=== PATIENT | female | born 1950 | race Caucasian/White ===

== ENCOUNTER 2016-08-09 09:08 | Emergency (ER) | payer OTHER ==
[2016-08-09 09:15] VITALS: BP 101/49; PULSE 99; TEMP 97.9; BMI 38.8
[2016-08-09] MEDS ORDERED: KETOROLAC TROMETHAMINE 60 MG/2 ML VIAL ONE (10:05)
--- NOTE | 2016-08-09 10:05 | PDOC ---
History of Present Illness - General Chief Complaint: Injury Stated Complaint: FALL/ BACK PAIN Time Seen by Provider: 08/09/16 09:28 History Source: Patient Exam Limitations: No Limitations - History of Present Illness Initial Comments: 08/09/16 9:04 States slipped and fell landing on her bottom 4 days ago, and has had exquisite coccyx pain since that time. States was black and blue, used ice packs but has significant continued tenderness. no tingling to legs, no other injury. Has used ibuprofen with minimal resolved. 08/09/16 16:05 08/09/16 16:08 Severity: reports: moderate Pain Location: reports: pelvis Method of Injury: Yes: fall Modifying Factors: improves with: cold therapy, pain medication Loss of Consciousness: no loss of consciousness Associated Symptoms (Fall): denies symptoms Past History - Travel Traveled outside of the country in the last 30 days: No Close contact w/someone who was outside of country & ill: No - Past Medical History Allergies/Adverse Reactions: Allergies Allergy/AdvReac Type Severity Reaction Status Date / Time acetaminophen [From Tylenol] AdvReac Nausea Verified 08/09/16 09:11 Home Medications: Ambulatory Orders Tramadol HCl 50 mg PO Q8H PRN #14 tablet MDD pain 08/09/16 Diabetes: Yes HTN: Yes Hypercholesterolemia: Yes - Surgical History Cholecystectomy: Yes - Psycho/Social/Smoking Cessation Hx Anxiety: No Suicidal Ideation: No Smoking Status: No Smoking History: Never smoked Number of Cigarettes Smoked Daily: 0 Hx Alcohol Use: Yes (SOCIAL) Substance Use Type: None Review of Systems - Review of Systems Able to Perform ROS?: Yes Is the patient limited Turkish proficient: Yes Constitutional: Yes: Symptoms Reported, See HPI, Malaise. No: Fever HEENTM: No: Symptoms Reported Respiratory: No: Symptoms reported Musculoskeletal: Yes: Symptoms Reported, See HPI, Joint Pain Integumentary: Yes: Symptoms Reported, See HPI, Bruising Neurological: No: Symptoms reported All Other Systems: Reviewed and Negative *Physical Exam - Vital Signs Last Vital Signs Temp Pulse Resp BP Pulse Ox 97.9 F 99 H 19 101/49 99 08/09/16 09:11 08/09/16 09:11 08/09/16 09:11 08/09/16 09:11 08/09/16 09:11 - Physical Exam Comments: 08/09/16 08/09/16 16:07 General Appearance: Yes: Appropriately Dressed, Apparent Distress, Moderate Distress HEENT: positive: MITRA, Normal ENT Inspection, TMs Normal Neck: positive: Supple. negative: Tender Respiratory/Chest: positive: Lungs Clear, Normal Breath Sounds Gastrointestinal/Abdominal: positive: Normal Bowel Sounds, Soft. 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 We will hold x-rays and discussed all symptomatology and evidence with patient. Understands treatment is pain relief and rest until healing and pain resolves *DC/Admit/Observation/Transfer Diagnosis at time of Disposition: Fractured coccyx Qualifiers: Encounter type: initial encounter Fracture type: closed Qualified Code(s): S32.2XXA - Fracture of coccyx, initial encounter for closed fracture - Discharge Dispostion Disposition: HOME Condition at time of disposition: Stable Admit: No - Prescriptions Prescriptions: Tramadol HCl 50 mg PO Q8H PRN #14 tablet MDD pain PRN Reason: Pain - Referrals Referrals: Maria Antonia Burns MD [Primary Care Provider] - - Patient Instructions Printed Discharge Instructions: DI for Coccyx Fracture Additional Instructions: Rest, ice to area on and off for 15 minutes 4-6 times a day Avoid heavy lifting or exercise until pain and swelling is resolved or until further directed Keep area highly elevated to reduce swelling Followup with orthopedist in one to 2 days if not improving, if significantly improved may wait one week for followup with orthopedist May use ibuprofen 2-200 mg tablets every 6 hours as needed for pain May use tramadol for severe pain as directed - Post Discharge Activity Work/School Note: Back to Work
[2016-08-09] MEDS ORDERED: KETOROLAC TROMETHAMINE 60 MG/2 ML VIAL IM ONE (10:14)
== END 2016-08-09 10:15 | disposition home or self-care (01) ==
LOC: JERFT 09:08
DX: S32.2XXA Fracture of coccyx, initial encounter for closed fracture (principal); I10 Essential (primary) hypertension; E11.9 Type 2 diabetes mellitus without complications; E78.00 Pure hypercholesterolemia, unspecified; W01.0XXA Fall on same level from slipping, tripping and stumbling without subsequent striking against object, initial encounter; Y93.89 Activity, other specified; Y92.89 Other specified places as the place of occurrence of the external cause
CPT/HCPCS: 99281-25

== ENCOUNTER 2016-11-18 11:34 | Inpatient (IN) | payer OTHER ==
--- NOTE | 2016-11-18 11:46 | PDOC ---
History of Present Illness - General History Source: Patient Exam Limitations: No Limitations - History of Present Illness Initial Comments: 11/18/16 12:58 The patient is a 66 year old female, with a significant past medical history of hypercholesterolemia, HTN, and DM, who presents to the emergency department with witnessed syncopal episode, occurring today. The patient reports having a 2 -5 minute syncopal episode while sitting in the sun at a baseball game. Her son reports then bringing her body down to the shade, icing her head, and alerting EMS. No previous episodes of syncope. Denies palpitations, SOB, or CP prior to syncope. She denies any complaints upon ED arrival. She denies recent ECHO or stress test. 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 She reports feeling her normal baseline yesterday. She denies headache, focal weakness, tongue biting, incontinence. She denies recent fevers, chills, headache or dizziness. She denies recent nausea, vomit, diarrhea or constipation. She denies recent dysuria, frequency, urgency or hematuria. Allergies: NKA Past surgical history: None reported. Social history: Nonsmoker. Denies EtOH use and recreational drug use. <Arslan Jackson - Last Filed: 11/18/16 12:58> <Diana Malhotra - Last Filed: 11/18/16 13:57> <Viki Macdonald - Last Filed: 11/18/16 21:36> - General Chief Complaint: Syncope/Near Syncope Stated Complaint: Syncope/Near Syncope Past History <Arslan Jackson - Last Filed: 11/18/16 12:58> - Past Medical History Diabetes: Yes HTN: Yes Hypercholesterolemia: Yes - Surgical History Cholecystectomy: Yes - Psycho/Social/Smoking Cessation Hx Anxiety: No Suicidal Ideation: No Smoking Status: No Smoking History: Never smoked Number of Cigarettes Smoked Daily: 0 Hx Alcohol Use: Yes (SOCIAL) Substance Use Type: None <Diana Malhotra - Last Filed: 11/18/16 13:57> <Viki Macdonlad - Last Filed: 11/18/16 21:36> - Past Medical History Allergies/Adverse Reactions: Allergies Allergy/AdvReac Type Severity Reaction Status Date / Time acetaminophen [From Tylenol] AdvReac Nausea Verified 11/18/16 12:04 Home Medications: Ambulatory Orders Amlodipine Besylate 5 mg PO DAILY 11/18/16 Atorvastatin Ca [Lipitor] 10 mg PO HS 11/18/16 Losartan Potassium 100 mg PO DAILY 11/18/16 Metoprolol Tartrate 100 mg PO DAILY 11/18/16 Review of Systems - Review of Systems Able to Perform ROS?: Yes Comments:: 11/18/16 12:58 GENERAL/CONSTITUTIONAL: No fever or chills. No weakness. HEAD, EYES, EARS, NOSE AND THROAT: No change in vision. No ear pain or discharge. No sore throat. CARDIOVASCULAR: No chest pain or shortness of breath. RESPIRATORY: No cough, wheezing, or hemoptysis. GASTROINTESTINAL: +nausea No vomiting, diarrhea or constipation. GENITOURINARY: No dysuria, frequency, or change in urination. MUSCULOSKELETAL: No joint or muscle swelling or pain. No neck or back pain. SKIN: No rash NEUROLOGIC: +lightheadedness. No headache, vertigo, loss of consciousness, or change in strength/sensation. ENDOCRINE: No increased thirst. No abnormal weight change. HEMATOLOGIC/LYMPHATIC: No anemia, easy bleeding, or history of blood clots. ALLERGIC/IMMUNOLOGIC: No hives or skin allergy. <Arslan Jackson - Last Filed: 11/18/16 12:58> *Physical Exam - Vital Signs Last Vital Signs Temp Pulse Resp BP Pulse Ox 101.6 F H 106 H 20 155/86 99 11/18/16 11:45 11/18/16 11:45 11/18/16 11:45 11/18/16 11:45 11/18/16 11:45 - Physical Exam Comments: 11/18/16 12:58 GENERAL: Awake, alert, and fully oriented, in no acute distress HEAD: No signs of trauma EYES: PERRLA, EOMI, sclera anicteric, conjunctiva clear ENT: Auricles normal inspection, hearing grossly normal, nares patent, oropharynx clear without exudates. Moist mucosa NECK: Normal ROM, supple, no lymphadenopathy, JVD, or masses LUNGS: Breath sounds equal, clear to auscultation bilaterally. No wheezes, and no crackles HEART: Regular rate and rhythm, normal S1 and S2, no murmurs, rubs or gallops ABDOMEN: Not remarkable. Soft, nontender, normoactive bowel sounds. No guarding , no rebound. No masses EXTREMITIES: 1+ pitting edema to the knees that was symmetric. Normal range of motion. No clubbing or cyanosis. No cords, erythema, or tenderness NEUROLOGICAL: Normal speech, cranial nerves intact, negative pronator drift, 5/ 5 strength in all 4 extremities, normal sensation to light touch in all 4 extremities, normal cerebellar exam, normal gait, normal reflexes and tone SKIN: Warm, Dry, normal turgor, no rashes or lesions noted. <Arslan Jackson - Last Filed: 11/18/16 12:58> - Vital Signs Last Vital Signs Temp Pulse Resp BP Pulse Ox 98.9 F 92 H 18 127/76 98 11/18/16 19:00 11/18/16 19:00 11/18/16 19:00 11/18/16 19:00 11/18/16 19:00 <Viki Macdonald - Last Filed: 11/18/16 21:36> Heart Score/ECG Review - ECG Impressions Comment:: 11/18/16 12:23 Sinus tachycardia rate 104 Normal axis and intervals Has T wave inversion in V2 through V5 and has flattened in AVF and V6 When compared with previous EKG from October 06, 2011 the T wave inversion in V3- V6 are new. <Arslan Jackson - Last Filed: 11/18/16 12:58> ED Treatment Course - LABORATORY CBC & Chemistry Diagram: 11/18/16 12:13 11/18/16 12:13 <Diana Malhotra - Last Filed: 11/18/16 13:57> - LABORATORY CBC & Chemistry Diagram: 11/18/16 12:13 11/18/16 12:13 - ADDITIONAL ORDERS Additional order review: Laboratory Results 11/18/16 11/18/16 11/18/16 19:44 17:23 14:20 D-Dimer VBG pH POC VBG pCO2 POC VBG pO2 Mixed VBG HCO3 Sodium Potassium Chloride Carbon Dioxide Anion Gap BUN Creatinine Creat Clearance w eGFR Random Glucose Lactic Acid 2.1 H* 4.9 H* Calcium Magnesium Total Bilirubin AST ALT Alkaline Phosphatase Troponin I B-Natriuretic Peptide Total Protein Albumin TSH Urine Color Ltyellow Urine Appearance Slcloudy Urine pH 5.0 D Ur Specific [place] 1.020 Urine Protein Negative Urine Glucose (UA) 1+ H Urine Ketones Negative Urine Blood 1+ H Urine Nitrite Negative Urine Bilirubin Negative Urine Urobilinogen Negative Ur Leukocyte Esterase 3+ H Urine RBC 4 Urine WBC 40 Ur Epithelial Cells Few Hyaline Casts 5 Urine Mucus Rare 11/18/16 11/18/16 11/18/16 12:46 12:46 12:46 D-Dimer 451 H VBG pH 7.33 POC VBG pCO2 54.9 H POC VBG pO2 16.3 L* Mixed VBG HCO3 28.4 H Sodium Potassium Chloride Carbon Dioxide Anion Gap BUN Creatinine Creat Clearance w eGFR Random Glucose Lactic Acid 4.8 H* Calcium Magnesium Total Bilirubin AST ALT Alkaline Phosphatase Troponin I B-Natriuretic Peptide Total Protein Albumin TSH Urine Color Urine Appearance Urine pH Ur Specific [place] Urine Protein Urine Glucose (UA) Urine Ketones Urine Blood Urine Nitrite Urine Bilirubin Urine Urobilinogen Ur Leukocyte Esterase Urine RBC Urine WBC Ur Epithelial Cells Hyaline Casts Urine Mucus 11/18/16 11/18/16 11/18/16 12:46 12:13 12:13 D-Dimer VBG pH POC VBG pCO2 POC VBG pO2 Mixed VBG HCO3 Sodium 140 Potassium 5.2 H D Chloride 102 Carbon Dioxide 28 Anion Gap 10 BUN 14 D Creatinine 1.0 Creat Clearance w eGFR 55.47 Random Glucose 171 H D Lactic Acid Calcium 9.0 Magnesium 1.6 L Total Bilirubin 0.8 D AST 33 ALT 36 Alkaline Phosphatase 137 H Troponin I < 0.02 B-Natriuretic Peptide Cancelled 153.90 H Total Protein 6.7 Albumin 3.4 TSH 1.62 Urine Color Urine Appearance Urine pH Ur Specific [place] Urine Protein Urine Glucose (UA) Urine Ketones Urine Blood Urine Nitrite Urine Bilirubin Urine Urobilinogen Ur Leukocyte Esterase Urine RBC Urine WBC Ur Epithelial Cells Hyaline Casts Urine Mucus 11/18/16 12:13 RBC 4.57 MCV 90.1 MCHC 33.8 RDW 13.6 MPV 8.7 Neutrophils % 90.3 H Lymphocytes % 4.9 L D Monocytes % 3.3 L D Eosinophils % 1.1 Basophils % 0.4 - Medications Given in the ED: ED Medications Discontinued Medications Generic Name Dose Route Start Last Admin Trade Name Freq PRN Reason Stop Dose Admin Sodium Chloride 1,000 mls @ 1,000 mls/hr 11/18/16 12:11 11/18/16 12:45 Normal Saline - IV 11/18/16 13:10 1,000 mls/hr ASDIR STA Administration Vancomycin HCl 1,250 mg/ 250 mls @ 250 mls/hr 11/18/16 13:54 11/18/16 14:35 Dextrose IVPB 11/18/16 14:53 250 mls/hr ONCE ONE Administration Protocol Piperacillin Sod/Tazobactam 100 mls @ 200 mls/hr 11/18/16 13:54 11/18/16 14:25 Sod 4.5 gm/ Dextrose IVPB 11/18/16 14:23 200 mls/hr ONCE ONE Administration Protocol Sodium Chloride 1,000 mls @ 1,000 mls/hr 11/18/16 18:31 11/18/16 19:09 Normal Saline - IV 11/18/16 19:30 1,000 mls/hr ASDIR STA Administration Sodium Chloride 1,000 mls @ 1,000 mls/hr 11/18/16 19:13 11/18/16 20:27 Normal Saline - IV 11/18/16 20:12 1,000 mls/hr ASDIR STA Administration Ibuprofen 600 mg 11/18/16 12:11 11/18/16 12:45 Motrin - PO 11/18/16 12:12 600 mg ONCE ONE Administration Sodium Chloride 1,000 ml 11/18/16 13:54 11/18/16 14:15 Normal Saline - IV 11/18/16 13:55 1,000 ml ONCE ONE Administration <Viki Macdonald - Last Filed: 11/18/16 21:36> Medical Decision Making - Critical Care Time Total Critical Care Time (minutes): 30 Critical Care Statement: The care of this patient involved high complexity decision making to prevent further life threatening deterioration of the patient 's condition and/or to evaluate & treat vital organ system(s) failure or risk of failure. - Medical Decision Making 11/18/16 13:57 66-year-old female presents with syncope while seated. Also found to have a fever and tachycardia to the low 100s. On exam, patient with no focal deficits. Differential for syncope is wide but includes vasovagal syncope in the setting of infection versus PE versus cardiac arrhythmia. -labs -UA/Ucx -Blood cx -lactate -CXR -monitor -likely admit <Diana Malhotra - Last Filed: 11/18/16 13:57> *DC/Admit/Observation/Transfer - Attestations Scribe Attestion: 11/18/16 12:23 Documentation prepared by Arslan Jackson, acting as medical chief technician for Diana Malhotra MD. <Arslan Jackson - Last Filed: 11/18/16 12:58> <Diana Malhotra - Last Filed: 11/18/16 13:57> - Discharge Dispostion Admit: Yes <Viki Macdonald - Last Filed: 11/18/16 21:36> Diagnosis at time of Disposition: Urinary tract infection - Discharge Dispostion Condition at time of disposition: Stable
[2016-11-18 11:48] VITALS: BMI 34.3
[2016-11-18] MEDS ORDERED: IBUPROFEN 600 MG TABLET (FP) PO ONE ×2 (12:11→12:41)
[2016-11-18] MEDS ORDERED: SODIUM CHLORIDE 1,000 ML IV STA ×3 (12:11→19:13)
[2016-11-18 12:55] LABS: VENOUS PH 7.33 (7.32-7.42)
[2016-11-18 12:56] LABS: VENOUS BLOOD GAS HCO3 28.4 meq/L (19-25)
[2016-11-18 13:03] LABS: BASOPHIL 0.4 % (0-2.0); EOSINOPHIL 1.1 % (0-4.5); MCH 30.4 pg (25.7-33.7); MCHC 33.8 g/dl (32.0-36.0); MEAN CELL VOLUME 90.1 fl (80-96); MEAN PLT VOLUME 8.7 fl (7.5-11.1); NEUTROPHILS 90.3 % (42.8-82.8); PLATELET COUNT 288 K/MM3 (134-434); RDW 13.6 % (11.6-15.6); WHITE BLOOD COUNT 16.5 K/mm3 (4.0-10.0)
[2016-11-18 13:24] LABS: ALBUMIN 3.4 g/dl (3.4-5.0); ANION GAP 10 (8-16); BILIRUBIN,TOTAL 0.8 mg/dL (0.2-1.0); CO2 28 mmol/L (21-32); GLUCOSE,RANDOM 171 mg/dL (74-106); MAGNESIUM 1.6 mg/dL (1.8-2.4); SGOT/AST 33 U/L (15-37); SGPT/ALT 36 U/L (12-78); TOT PROT 6.7 g/dl (6.4-8.2)
[2016-11-18 13:26] LABS: ALK PHOS 137 U/L (45-117)
[2016-11-18 13:31] LABS: THYROID STIMULATING HORMONE 1.62 uIU/ml (0.358-3.74); TROPONIN I < 0.02 ng/ml (0.00-0.05)
[2016-11-18] MEDS ORDERED: VANCOMYCIN 1,250 MG in DEXTROSE 5%-WATER - 250 ML IVPB ONE (13:54)
[2016-11-18] MEDS ORDERED: SODIUM CHLORIDE 0.9% 500 ML INFUS.BAG IV ONE (13:54)
[2016-11-18] MEDS ORDERED: PIPERACILLIN/TAZOB 4.5 GM 4.5 GM in DEXTROSE 5%-WATER - 100 ML IVPB ONE (13:54)
[2016-11-18] MEDS ORDERED: VANCOMYCIN 1 GRAM (PRE-DOCKED) 250 ML IVPB ONE (14:05)
[2016-11-18] MEDS ORDERED: PIPERACILLIN/TAZOB 4.5 GM 100 ML IVPB ONE (14:05)
[2016-11-18 14:32] LABS: URINE APPEARANCE SLCLOUDY; URINE BILIRUBIN NEGATIVE (NEGATIVE); URINE BLOOD 1+ (NEGATIVE); URINE COLOR LTYELLOW; URINE GLUCOSE (UA) 1+ (NEGATIVE); URINE KETONE NEGATIVE (NEGATIVE); URINE NITRITE NEGATIVE (NEGATIVE); URINE PROTEIN NEGATIVE (NEGATIVE); URINE UROBILINOGEN NEGATIVE mg/dL (0.2-1.0)
[2016-11-18 14:52] LABS: URINE LEUK ESTERASE 3+ (NEGATIVE)
[2016-11-18 15:18] LABS: URINE HYALINE CAST 5 /lpf; URINE MUCUS RARE; URINE RBC 4 /hpf (0-3); URINE WBC 40 /hpf (3-5)
--- NOTE | 2016-11-18 17:19 | EKG ---
Test Reason : Blood Pressure : / mmHG Vent. Rate : 104 BPM Atrial Rate : 104 BPM P-R Int : 124 ms QRS Dur : 080 ms QT Int : 336 ms P-R-T Axes : 033 001 -17 degrees QTc Int : 441 ms SINUS TACHYCARDIA ABNORMAL ECG WHEN COMPARED WITH ECG OF 05-OCT-2001 11:23, T WAVE INVERSION NOW EVIDENT IN ANTERIOR LEADS VENT. RATE HAS INCREASED Confirmed by CHARO CARPIO MD ([id number]) on 11/18/2016 5:18:43 PM Referred By: Confirmed By:CHARO CARPIO MD
--- NOTE | 2016-11-18 18:01 | PDOC ---
*Physical Exam - Vital Signs Last Vital Signs Temp Pulse Resp BP Pulse Ox 101.6 F H 106 H 20 155/86 99 11/18/16 11:45 11/18/16 11:45 11/18/16 11:45 11/18/16 11:45 11/18/16 11:57 ED Treatment Course - LABORATORY CBC & Chemistry Diagram: 11/18/16 12:13 11/18/16 12:13 - ADDITIONAL ORDERS Additional order review: Laboratory Results 11/18/16 11/18/16 11/18/16 14:20 12:46 12:46 D-Dimer VBG pH 7.33 POC VBG pCO2 54.9 H POC VBG pO2 16.3 L* Mixed VBG HCO3 28.4 H Sodium Potassium Chloride Carbon Dioxide Anion Gap BUN Creatinine Creat Clearance w eGFR Random Glucose Lactic Acid 4.8 H* Calcium Magnesium Total Bilirubin AST ALT Alkaline Phosphatase Troponin I B-Natriuretic Peptide Total Protein Albumin TSH Urine Color Ltyellow Urine Appearance Slcloudy Urine pH 5.0 D Urine Protein Negative Urine Glucose (UA) 1+ H Urine Ketones Negative Urine Blood 1+ H Urine Nitrite Negative Urine Bilirubin Negative Urine Urobilinogen Negative Ur Leukocyte Esterase 3+ H Urine RBC 4 Urine WBC 40 Ur Epithelial Cells Few Hyaline Casts 5 Urine Mucus Rare 11/18/16 11/18/16 11/18/16 12:46 12:46 12:13 D-Dimer 451 H VBG pH POC VBG pCO2 POC VBG pO2 Mixed VBG HCO3 Sodium Potassium Chloride Carbon Dioxide Anion Gap BUN Creatinine Creat Clearance w eGFR Random Glucose Lactic Acid Calcium Magnesium 1.6 L Total Bilirubin AST ALT Alkaline Phosphatase Troponin I < 0.02 B-Natriuretic Peptide Cancelled Total Protein Albumin TSH 1.62 Urine Color Urine Appearance Urine pH Urine Protein Urine Glucose (UA) Urine Ketones Urine Blood Urine Nitrite Urine Bilirubin Urine Urobilinogen Ur Leukocyte Esterase Urine RBC Urine WBC Ur Epithelial Cells Hyaline Casts Urine Mucus 11/18/16 12:13 D-Dimer VBG pH POC VBG pCO2 POC VBG pO2 Mixed VBG HCO3 Sodium 140 Potassium 5.2 H D Chloride 102 Carbon Dioxide 28 Anion Gap 10 BUN 14 D Creatinine 1.0 Creat Clearance w eGFR 55.47 Random Glucose 171 H D Lactic Acid Calcium 9.0 Magnesium Total Bilirubin 0.8 D AST 33 ALT 36 Alkaline Phosphatase 137 H Troponin I B-Natriuretic Peptide 153.90 H Total Protein 6.7 Albumin 3.4 TSH Urine Color Urine Appearance Urine pH Urine Protein Urine Glucose (UA) Urine Ketones Urine Blood Urine Nitrite Urine Bilirubin Urine Urobilinogen Ur Leukocyte Esterase Urine RBC Urine WBC Ur Epithelial Cells Hyaline Casts Urine Mucus 11/18/16 12:13 RBC 4.57 MCV 90.1 MCHC 33.8 RDW 13.6 MPV 8.7 Neutrophils % 90.3 H Lymphocytes % 4.9 L D Monocytes % 3.3 L D Eosinophils % 1.1 Basophils % 0.4 - Medications Given in the ED: ED Medications Discontinued Medications Generic Name Dose Route Start Last Admin Trade Name Freq PRN Reason Stop Dose Admin Sodium Chloride 1,000 mls @ 1,000 mls/hr 11/18/16 12:11 11/18/16 12:45 Normal Saline - IV 11/18/16 13:10 1,000 mls/hr ASDIR STA Administration Vancomycin HCl 1,250 mg/ 250 mls @ 250 mls/hr 11/18/16 13:54 11/18/16 14:35 Dextrose IVPB 11/18/16 14:53 250 mls/hr ONCE ONE Administration Protocol Piperacillin Sod/Tazobactam 100 mls @ 200 mls/hr 11/18/16 13:54 11/18/16 14:25 Sod 4.5 gm/ Dextrose IVPB 11/18/16 14:23 200 mls/hr ONCE ONE Administration Protocol Ibuprofen 600 mg 11/18/16 12:11 11/18/16 12:45 Motrin - PO 11/18/16 12:12 600 mg ONCE ONE Administration Sodium Chloride 1,000 ml 11/18/16 13:54 11/18/16 14:15 Normal Saline - IV 11/18/16 13:55 1,000 ml ONCE ONE Administration Medical Decision Making - Medical Decision Making 11/18/16 18:00 Pt endorsed to me by Dr. Malhotra, evaluated for syncopal event, met SIRs criteria , found to have UTI. Awaiting CTA to r/o PE, repeat lactate. Plan for admission. 11/18/16 21:[address] Wolf for admission. Lactate has improved with 3L NSS. Stable for admission to tele floor. *DC/Admit/Observation/Transfer Diagnosis at time of Disposition: SIRS (systemic inflammatory response syndrome) UTI (urinary tract infection) Qualifiers: Urinary tract infection type: site unspecified Hematuria presence: without hematuria Qualified Code(s): N39.0 - Urinary tract infection, site not specified Syncope Qualifiers: Syncope type: unspecified Qualified Code(s): R55 - Syncope and collapse - Discharge Dispostion Condition at time of disposition: Stable Admit: Yes - Referrals
--- NOTE | 2016-11-18 22:14 | HP ---
Admitting History and Physical - Primary Care Physician PCP: Keenan Wolf - Admission History of Present Illness: 66 year old female, with a significant past medical history of hypercholesterolemia, HTN, and DM, who presents to the emergency department with witnessed syncopal episode, occurring today. The patient reports having a 2 -5 minute syncopal episode while sitting in the sun at a baseball game. Her son reports then bringing her body down to the shade, icing her head, and alerting EMS. No previous episodes of syncope. Denies palpitations, SOB, or CP prior to syncope. She denies any complaints upon ED arrival. She denies recent ECHO or stress test. Does not have a inspector scales. She reports feeling her normal baseline yesterday. - Past Medical History Cardiovascular: Yes: HTN, Hyperlipdemia Endocrine: Yes: Diabetes Mellitus - Smoking History Smoking history: Never smoked Have you smoked in the past 12 months: No Aproximately how many cigarettes per day: 0 - Alcohol/Substance Use Hx Alcohol Use: Yes (SOCIAL) Home Medications - Allergies Allergies/Adverse Reactions: Allergies Allergy/AdvReac Type Severity Reaction Status Date / Time acetaminophen [From Tylenol] AdvReac Nausea Verified 11/18/16 12:04 - Home Medications Home Medications: Ambulatory Orders Amlodipine Besylate 5 mg PO DAILY 11/18/16 Atorvastatin Ca [Lipitor] 10 mg PO HS 11/18/16 Losartan Potassium 100 mg PO DAILY 11/18/16 Metoprolol Tartrate 100 mg PO DAILY 11/18/16 Physical Examination Vital Signs: Vital Signs Temperature 98.9 F 11/18/16 19:00 Pulse Rate 92 H 11/18/16 19:00 Respiratory Rate 18 11/18/16 19:00 Blood Pressure 127/76 11/18/16 19:00 O2 Sat by Pulse Oximetry (%) 98 11/18/16 21:20 Constitutional: Yes: No Distress HENT: Yes: Atraumatic Neck: Yes: Supple Cardiovascular: Yes: Regular Rate and Rhythm Respiratory: Yes: CTA Bilaterally Gastrointestinal: Yes: Normal Bowel Sounds Extremities: Yes: WNL Neurological: Yes: Alert, Oriented Imaging - Results Cat Scan: Report Reviewed Problem List - Problems (1) SIRS (systemic inflammatory response syndrome) Assessment/Plan: ON IV ABX IVF UCX AND BCX SENT ID CONSULT Code(s): R65.10 - SIRS OF NON-INFECTIOUS ORIGIN W/O ACUTE ORGAN DYSFUNCTION (2) Syncope Assessment/Plan: COULD BE DUE TO INFECTION WILL MONITOR ON TELE Code(s): R55 - SYNCOPE AND COLLAPSE Qualifiers: Syncope type: unspecified Qualified Code(s): R55 - Syncope and collapse (3) UTI (urinary tract infection) Assessment/Plan: ON IV ABX CXS SENT Code(s): N39.0 - URINARY TRACT INFECTION, SITE NOT SPECIFIED Qualifiers: Urinary tract infection type: site unspecified Hematuria presence: without hematuria Qualified Code(s): N39.0 - Urinary tract infection, site not specified; R31.9 - Hematuria, unspecified (4) Abnormal ECG Code(s): R94.31 - ABNORMAL ELECTROCARDIOGRAM [ECG] [EKG] (5) HTN (hypertension) Assessment/Plan: ON MEDS STABLE Code(s): I10 - ESSENTIAL (PRIMARY) HYPERTENSION Qualifiers: Hypertension type: essential hypertension Qualified Code(s): I10 - Essential (primary) hypertension (6) Hypercholesterolemia Assessment/Plan: ON MEDS STABLE Code(s): E78.00 - PURE HYPERCHOLESTEROLEMIA, UNSPECIFIED Assessment/Plan Laboratory Tests 11/18/16 11/18/16 11/18/16 12:13 12:13 12:13 WBC 16.5 H RBC 4.57 Hgb 13.9 Hct 41.2 MCV 90.1 MCH 30.4 MCHC 33.8 RDW 13.6 Plt Count 288 D MPV 8.7 Neutrophils % 90.3 H Lymphocytes % 4.9 L D Monocytes % 3.3 L D Eosinophils % 1.1 Basophils % 0.4 D-Dimer VBG pH POC VBG pCO2 POC VBG pO2 Mixed VBG HCO3 Sodium 140 Potassium 5.2 H D Chloride 102 Carbon Dioxide 28 Anion Gap 10 BUN 14 D Creatinine 1.0 Creat Clearance w eGFR 55.47 Random Glucose 171 H D Lactic Acid Calcium 9.0 Magnesium 1.6 L Total Bilirubin 0.8 D AST 33 ALT 36 Alkaline Phosphatase 137 H Troponin I < 0.02 B-Natriuretic Peptide 153.90 H Total Protein 6.7 Albumin 3.4 TSH 1.62 Urine Color Urine Appearance Urine pH Ur Specific [place] Urine Protein Urine Glucose (UA) Urine Ketones Urine Blood Urine Nitrite Urine Bilirubin Urine Urobilinogen Ur Leukocyte Esterase Urine RBC Urine WBC Ur Epithelial Cells Hyaline Casts Urine Mucus 11/18/16 11/18/16 11/18/16 12:46 12:46 12:46 WBC RBC Hgb Hct MCV MCH MCHC RDW Plt Count MPV Neutrophils % Lymphocytes % Monocytes % Eosinophils % Basophils % D-Dimer 451 H VBG pH 7.33 POC VBG pCO2 54.9 H POC VBG pO2 16.3 L* Mixed VBG HCO3 28.4 H Sodium Potassium Chloride Carbon Dioxide Anion Gap BUN Creatinine Creat Clearance w eGFR Random Glucose Lactic Acid Calcium Magnesium Total Bilirubin AST ALT Alkaline Phosphatase Troponin I B-Natriuretic Peptide Cancelled Total Protein Albumin TSH Urine Color Urine Appearance Urine pH Ur Specific [place] Urine Protein Urine Glucose (UA) Urine Ketones Urine Blood Urine Nitrite Urine Bilirubin Urine Urobilinogen Ur Leukocyte Esterase Urine RBC Urine WBC Ur Epithelial Cells Hyaline Casts Urine Mucus 11/18/16 11/18/16 11/18/16 12:46 14:20 17:23 WBC RBC Hgb Hct MCV MCH MCHC RDW Plt Count MPV Neutrophils % Lymphocytes % Monocytes % Eosinophils % Basophils % D-Dimer VBG pH POC VBG pCO2 POC VBG pO2 Mixed VBG HCO3 Sodium Potassium Chloride Carbon Dioxide Anion Gap BUN Creatinine Creat Clearance w eGFR Random Glucose Lactic Acid 4.8 H* 4.9 H* Calcium Magnesium Total Bilirubin AST ALT Alkaline Phosphatase Troponin I B-Natriuretic Peptide Total Protein Albumin TSH Urine Color Ltyellow Urine Appearance Slcloudy Urine pH 5.0 D Ur Specific [place] 1.020 Urine Protein Negative Urine Glucose (UA) 1+ H Urine Ketones Negative Urine Blood 1+ H Urine Nitrite Negative Urine Bilirubin Negative Urine Urobilinogen Negative Ur Leukocyte Esterase 3+ H Urine RBC 4 Urine WBC 40 Ur Epithelial Cells Few Hyaline Casts 5 Urine Mucus Rare 11/18/16 19:44 WBC RBC Hgb Hct MCV MCH MCHC RDW Plt Count MPV Neutrophils % Lymphocytes % Monocytes % Eosinophils % Basophils % D-Dimer VBG pH POC VBG pCO2 POC VBG pO2 Mixed VBG HCO3 Sodium Potassium Chloride Carbon Dioxide Anion Gap BUN Creatinine Creat Clearance w eGFR Random Glucose Lactic Acid 2.1 H* Calcium Magnesium Total Bilirubin AST ALT Alkaline Phosphatase Troponin I B-Natriuretic Peptide Total Protein Albumin TSH Urine Color Urine Appearance Urine pH Ur Specific [place] Urine Protein Urine Glucose (UA) Urine Ketones Urine Blood Urine Nitrite Urine Bilirubin Urine Urobilinogen Ur Leukocyte Esterase Urine RBC Urine WBC Ur Epithelial Cells Hyaline Casts Urine Mucus Active Medications Generic Name Dose Route Start Last Admin Trade Name Freq PRN Reason Stop Dose Admin Amlodipine Besylate 5 mg 11/19/16 10:00 Norvasc - PO DAILY [place] Atorvastatin Calcium 10 mg 11/19/16 22:00 Lipitor - PO HS [place] Non-Formulary Medication 100 mg 11/19/16 10:00 Metoprolol Tartrate [Metoprolol Tartrate] PO DAILY [facility] Active Medications Generic Name Dose Route Start Last Admin Trade Name Freq PRN Reason Stop Dose Admin Amlodipine Besylate 5 mg 11/19/16 10:00 11/19/16 09:29 Norvasc - PO 5 mg DAILY [place] Administration Aspirin 81 mg 11/19/16 14:30 11/19/16 14:51 Ecotrin - PO 81 mg DAILY [place] Administration Atorvastatin Calcium 10 mg 11/19/16 22:00 Lipitor - PO HS [facility] Ceftriaxone Sodium 50 mls @ 100 mls/hr 11/19/16 16:45 11/19/16 17:36 Rocephin 1gm Ivpb (Pre-Docked) IVPB 100 mls/hr DAILY [facility] Administration Metoprolol Tartrate 100 mg 11/19/16 10:00 11/19/16 09:29 Lopressor - PO 100 mg DAILY [facility] Administration
[2016-11-19] MEDS ORDERED: diphenhydrAMINE HCL 25 MG CAPSULE (FP) PO ONE (01:30)
[2016-11-19 07:16] LABS: BASOPHIL 0.6 % (0-2.0); EOSINOPHIL 0.4 % (0-4.5); MCH 30.7 pg (25.7-33.7); MCHC 34.9 g/dl (32.0-36.0); MEAN CELL VOLUME 87.8 fl (80-96); MEAN PLT VOLUME 8.5 fl (7.5-11.1); NEUTROPHILS 83.2 % (42.8-82.8); PLATELET COUNT 211 K/MM3 (134-434); RDW 13.4 % (11.6-15.6); WHITE BLOOD COUNT 8.7 K/mm3 (4.0-10.0)
[2016-11-19 07:28] LABS: ALBUMIN 3.1 g/dl (3.4-5.0); ANION GAP 9 (8-16); CALCIUM 8.3 mg/dL (8.5-10.1); CO2 23 mmol/L (21-32); GLUCOSE,RANDOM 165 mg/dL (74-106)
[2016-11-19 07:34] LABS: ALK PHOS 118 U/L (45-117); BILIRUBIN,TOTAL 0.9 mg/dL (0.2-1.0); CREATININE 0.9 mg/dL (0.55-1.02); SGOT/AST 34 U/L (15-37); SGPT/ALT 42 U/L (12-78); TOT PROT 6.2 g/dl (6.4-8.2)
[2016-11-19] MEDS: METOPROLOL TARTRATE 50 MG TABLET (FP) PO SCH (09:29)
[2016-11-19] MEDS: amLODIPine BESYLATE 5 MG TABLET (FP) PO SCH (09:29)
[2016-11-19] MEDS ORDERED: IBUPROFEN 600 MG TABLET (FP) PO ONE (12:00)
--- NOTE | 2016-11-19 13:20 | CON.CARD ---
Consult Consult Specialty:: Cardiology Referred by:: Dr. Wolf Reason for Consultation:: Cardiac evaluation - History of Present Illness Chief Complaint: Status post fall without LOC History of Present Illness: Patient is a 66 year old female with underlying history of hypertension and hypercholesterolemia who presents after a fall without LOC (according to patient ). She was at her son's softball game and as she got up to walk, she felt faint and fell to the ground, however; she did not suffer any injuries. EMS was called and she was brought in to [facility]. She denies prior syncopal episodes. She denies chest pain, shortness of breath or palpitations. She denies paroxysmal nocturnal dyspnea or orthopnea. She denies fever or chills. She complained of headache and dizziness prior to event, but appears comfortable at this time. She denies nausea, vomiting, diarrhea or abdominal pain. She denies any numbness or other neurologic symptoms. Cardiology consultation was called for further evaluation. - History Source History Provided By: Patient, Medical Record Limitations to Obtaining History: No Limitations - Past Medical History Cardio/Vascular: Yes: HTN, Hyperlipdemia - Past Surgical History Past Surgical History: Yes: Hysterectomy - Alcohol/Substance Use Hx Alcohol Use: Yes (SOCIAL) - Smoking History Smoking history: Never smoked Have you smoked in the past 12 months: No Aproximately how many cigarettes per day: 0 Home Medications - Allergies Allergies/Adverse Reactions: Allergies Allergy/AdvReac Type Severity Reaction Status Date / Time acetaminophen [From Tylenol] AdvReac Nausea Verified 11/18/16 12:04 - Home Medications Home Medications: Ambulatory Orders Amlodipine Besylate 5 mg PO DAILY 11/18/16 Atorvastatin Ca [Lipitor] 10 mg PO HS 11/18/16 Losartan Potassium 100 mg PO DAILY 11/18/16 Metoprolol Tartrate 100 mg PO DAILY 11/18/16 Family Disease History - Family Disease History Family Disease History: CA: Mother (Leukemia) Other Family History: Family history of CAD, HTN Review of Systems - Review of Systems Constitutional: denies: Chills, Fever Cardiovascular: denies: Chest Pain, Palpitations, Shortness of Breath Respiratory: denies: Cough, Hemoptysis, Orthopnea, PND, SOB, SOB on Exertion Gastrointestinal: denies: Abdominal Pain, Constipation, Diarrhea, Melena, Nausea , Rectal Bleeding, Vomiting Musculoskeletal: denies: Joint Pain Neurological: reports: Dizziness, Headache. denies: Seizure, Syncope Vital Signs: Vital Signs Temperature 98 F 11/19/16 08:20 Pulse Rate 123 H 11/19/16 08:20 Respiratory Rate 20 11/19/16 08:20 Blood Pressure 151/92 11/19/16 08:20 O2 Sat by Pulse Oximetry (%) 95 11/19/16 08:00 HENT: Yes: Atraumatic Neck: Yes: Supple Respiratory: Yes: CTA Bilaterally Gastrointestinal: Yes: Normal Bowel Sounds, Soft. No: Tenderness Cardiovascular: Yes: Regular Rate and Rhythm JVD: No Carotid Bruit: No PMI: Non-Displaced Heart Sounds: Yes: S1, S2. No: Gallop Murmur: No: Systolic Murmur, Diastolic Murmur Edema: No - Other Data Labs, Other Data: CBC, BMP 11/19/16 05:35 11/19/16 05:35 Laboratory Results - last 24 hr 11/18/16 11/18/16 11/18/16 12:13 12:13 12:46 WBC RBC Hgb Hct MCV MCH MCHC RDW Plt Count MPV Neutrophils % Lymphocytes % Monocytes % Eosinophils % Basophils % D-Dimer 451 H Sodium 140 Potassium 5.2 H D Chloride 102 Carbon Dioxide 28 Anion Gap 10 BUN 14 D Creatinine 1.0 Creat Clearance w eGFR 55.47 Random Glucose 171 H D Lactic Acid Calcium 9.0 Magnesium 1.6 L Total Bilirubin 0.8 D AST 33 ALT 36 Alkaline Phosphatase 137 H Troponin I < 0.02 B-Natriuretic Peptide 153.90 H Total Protein 6.7 Albumin 3.4 TSH 1.62 Urine Color Urine Appearance Urine pH Ur Specific [place] Urine Protein Urine Glucose (UA) Urine Ketones Urine Blood Urine Nitrite Urine Bilirubin Urine Urobilinogen Ur Leukocyte Esterase Urine RBC Urine WBC Ur Epithelial Cells Hyaline Casts Urine Mucus 11/18/16 11/18/16 11/18/16 12:46 14:20 17:23 WBC RBC Hgb Hct MCV MCH MCHC RDW Plt Count MPV Neutrophils % Lymphocytes % Monocytes % Eosinophils % Basophils % D-Dimer Sodium Potassium Chloride Carbon Dioxide Anion Gap BUN Creatinine Creat Clearance w eGFR Random Glucose Lactic Acid 4.8 H* 4.9 H* Calcium Magnesium Total Bilirubin AST ALT Alkaline Phosphatase Troponin I B-Natriuretic Peptide Total Protein Albumin TSH Urine Color Ltyellow Urine Appearance Slcloudy Urine pH 5.0 D Ur Specific [place] 1.020 Urine Protein Negative Urine Glucose (UA) 1+ H Urine Ketones Negative Urine Blood 1+ H Urine Nitrite Negative Urine Bilirubin Negative Urine Urobilinogen Negative Ur Leukocyte Esterase 3+ H Urine RBC 4 Urine WBC 40 Ur Epithelial Cells Few Hyaline Casts 5 Urine Mucus Rare 11/18/16 11/18/16 11/19/16 19:44 22:47 05:35 WBC 8.7 D RBC 4.26 Hgb 13.1 Hct 37.4 MCV 87.8 MCH 30.7 MCHC 34.9 RDW 13.4 Plt Count 211 D MPV 8.5 Neutrophils % 83.2 H Lymphocytes % 10.7 D Monocytes % 5.1 Eosinophils % 0.4 Basophils % 0.6 D-Dimer Sodium Potassium Chloride Carbon Dioxide Anion Gap BUN Creatinine Creat Clearance w eGFR Random Glucose Lactic Acid 2.1 H* 1.5 Calcium Magnesium Total Bilirubin AST ALT Alkaline Phosphatase Troponin I B-Natriuretic Peptide Total Protein Albumin TSH Urine Color Urine Appearance Urine pH Ur Specific [place] Urine Protein Urine Glucose (UA) Urine Ketones Urine Blood Urine Nitrite Urine Bilirubin Urine Urobilinogen Ur Leukocyte Esterase Urine RBC Urine WBC Ur Epithelial Cells Hyaline Casts Urine Mucus 11/19/16 05:35 WBC RBC Hgb Hct MCV MCH MCHC RDW Plt Count MPV Neutrophils % Lymphocytes % Monocytes % Eosinophils % Basophils % D-Dimer Sodium 137 Potassium 4.0 D Chloride 105 Carbon Dioxide 23 Anion Gap 9 BUN 10 D Creatinine 0.9 Creat Clearance w eGFR > 60 Random Glucose 165 H Lactic Acid Calcium 8.3 L Magnesium Total Bilirubin 0.9 AST 34 ALT 42 Alkaline Phosphatase 118 H Troponin I B-Natriuretic Peptide Total Protein 6.2 L Albumin 3.1 L TSH Urine Color Urine Appearance Urine pH Ur Specific [place] Urine Protein Urine Glucose (UA) Urine Ketones Urine Blood Urine Nitrite Urine Bilirubin Urine Urobilinogen Ur Leukocyte Esterase Urine RBC Urine WBC Ur Epithelial Cells Hyaline Casts Urine Mucus Sinus tachycardia with T wave inversion in anterior leads Imaging - Results Chest X-ray: Report Reviewed (Unremarkable) Cat Scan: Report Reviewed (CTA of chest no PTE) EKG: Report Reviewed Problem List - Problems (1) Syncope Code(s): R55 - SYNCOPE AND COLLAPSE Qualifiers: Syncope type: unspecified Qualified Code(s): R55 - Syncope and collapse (2) HTN (hypertension) Code(s): I10 - ESSENTIAL (PRIMARY) HYPERTENSION Qualifiers: Hypertension type: essential hypertension Qualified Code(s): I10 - Essential (primary) hypertension (3) Hypercholesterolemia Code(s): E78.00 - PURE HYPERCHOLESTEROLEMIA, UNSPECIFIED (4) Abnormal ECG Code(s): R94.31 - ABNORMAL ELECTROCARDIOGRAM [ECG] [EKG] Assessment/Plan 1. Status post fall without LOC - ? syncope or near syncope vs. due to dehydration 2. Abnormal ECG - rule out CAD 3. Hypertension 4. Hypercholesterolemia 5. Post lactic acidosis, etiology unclear ?hypoxia PLAN: 1. Continue Metoprolol, Losartan and Amlodipine as tolerated 2. Add ASA 81 mg once a day 3. Continue Atorvastatin and follow lipid panel 4. Transthoracic echocardiography to assess LV/RV and valvular function 5. Further cardiac work up including nuclear stress testing can be done as outpatient if second set of troponin is negative Thank you for consultation request. Further plans are to follow Dimitri Woo MD
[2016-11-19] MEDS: ASPIRIN COATED 81 MG TABLET.EC PO SCH (14:51)
--- NOTE | 2016-11-19 16:28 | CONSULT ---
Consult Consult Specialty:: infectious diseases Reason for Consultation:: lactic acidosis. sepsis - History of Present Illness Chief Complaint: weakness and lethargy History of Present Illness: 66 year old female, with a significant past medical history of hypercholesterolemia, HTN, and DM, who presents to the emergency department with witnessed syncopal episode, occurring today. The patient reports having a 2 -5 minute syncopal episode while sitting in the sun at a baseball game. Her son reports then bringing her body down to the shade, icing her head, and alerting EMS. patient denies every issues patient was worked up and found to have probably uti and sever dehydration and lactic acidosis - History Source History Provided By: Patient - Past Medical History Cardio/Vascular: Yes: HTN, Hyperlipdemia - Past Surgical History Past Surgical History: Yes: Hysterectomy - Alcohol/Substance Use Hx Alcohol Use: Yes (SOCIAL) - Smoking History Smoking history: Never smoked Have you smoked in the past 12 months: No Aproximately how many cigarettes per day: 0 Home Medications - Allergies Allergies/Adverse Reactions: Allergies Allergy/AdvReac Type Severity Reaction Status Date / Time acetaminophen [From Tylenol] AdvReac Nausea Verified 11/18/16 12:04 - Home Medications Home Medications: Ambulatory Orders Amlodipine Besylate 5 mg PO DAILY 11/18/16 Atorvastatin Ca [Lipitor] 10 mg PO HS 11/18/16 Losartan Potassium 100 mg PO DAILY 11/18/16 Metoprolol Tartrate 100 mg PO DAILY 11/18/16 Family Disease History - Family Disease History Family Disease History: CA: Mother (Leukemia) Other Family History: Family history of CAD, HTN Review of Systems - Review of Systems Constitutional: reports: Lethargy, Other Eyes: reports: No Symptoms HENT: reports: No Symptoms Neck: reports: No Symptoms Cardiovascular: reports: No Symptoms Respiratory: reports: No Symptoms Gastrointestinal: reports: No Symptoms Genitourinary: reports: No Symptoms Musculoskeletal: reports: No Symptoms Integumentary: reports: No Symptoms Neurological: reports: Weakness, Other Endocrine: reports: No Symptoms Hematology/Lymphatic: reports: No Symptoms Psychiatric: reports: No Symptoms Physical Exam Vital Signs: Vital Signs Temperature 97.5 F L 11/19/16 15:07 Pulse Rate 84 11/19/16 15:07 Respiratory Rate 20 11/19/16 08:20 Blood Pressure 137/89 11/19/16 15:07 O2 Sat by Pulse Oximetry (%) 95 11/19/16 08:00 Constitutional: Yes: Well Nourished, Obese Eyes: Yes: Conjunctiva Clear HENT: Yes: Atraumatic Neck: Yes: Supple, Trachea Midline Cardiovascular: Yes: Regular Rate and Rhythm Respiratory: Yes: Regular, CTA Bilaterally Gastrointestinal: Yes: Normal Bowel Sounds, Soft Musculoskeletal: Yes: WNL Extremities: Yes: WNL Integumentary: Yes: WNL Neurological: Yes: Alert, Oriented Psychiatric: Yes: Alert, Oriented Labs: CBC, BMP 11/19/16 05:35 11/19/16 05:35 Assessment/Plan uti syncope lactic acidosis obesity plan hydration continue abx await for cx report rest as per primary team
[2016-11-19] MEDS: CEFTRIAXONE 50 ML IVPB SCH (17:36)
--- NOTE | 2016-11-19 17:49 | PN ---
Progress Note, Physician - Current Medication List Current Medications: Active Medications Amlodipine Besylate (Norvasc -) 5 mg PO DAILY [facility] Last Admin: 11/19/16 09:29 Dose: 5 mg Aspirin (Ecotrin -) 81 mg PO DAILY [facility] Last Admin: 11/19/16 14:51 Dose: 81 mg Atorvastatin Calcium (Lipitor -) 10 mg PO [facility] Ceftriaxone Sodium (Rocephin 1gm Ivpb (Pre-Docked)) 50 mls @ 100 mls/hr IVPB DAILY [facility] Last Admin: 11/19/16 17:36 Dose: 100 mls/hr Metoprolol Tartrate (Lopressor -) 100 mg PO DAILY [facility] Last Admin: 11/19/16 09:29 Dose: 100 mg - Objective Vital Signs: Vital Signs Temperature 97.5 F L 11/19/16 15:07 Pulse Rate 84 11/19/16 15:07 Respiratory Rate 20 11/19/16 08:20 Blood Pressure 137/89 11/19/16 15:07 O2 Sat by Pulse Oximetry (%) 95 11/19/16 08:00 Constitutional: Yes: No Distress HENT: Yes: Atraumatic Neck: Yes: Supple Cardiovascular: Yes: Regular Rate and Rhythm Respiratory: Yes: CTA Bilaterally Gastrointestinal: Yes: Normal Bowel Sounds Extremities: Yes: WNL Neurological: Yes: Alert, Oriented Labs: CBC, BMP 11/19/16 05:35 11/19/16 05:35 Problem List - Problems (1) SIRS (systemic inflammatory response syndrome) Assessment/Plan: ON IV ABX IVF UCX AND BCX SENT ID CONSULT Code(s): R65.10 - SIRS OF NON-INFECTIOUS ORIGIN W/O ACUTE ORGAN DYSFUNCTION (2) Syncope Assessment/Plan: DOING WELL Code(s): R55 - SYNCOPE AND COLLAPSE Qualifiers: Syncope type: unspecified Qualified Code(s): R55 - Syncope and collapse (3) UTI (urinary tract infection) Assessment/Plan: ON IV ABX CXS SENT Code(s): N39.0 - URINARY TRACT INFECTION, SITE NOT SPECIFIED Qualifiers: Urinary tract infection type: site unspecified Hematuria presence: without hematuria Qualified Code(s): N39.0 - Urinary tract infection, site not specified; R31.9 - Hematuria, unspecified (4) Abnormal ECG Assessment/Plan: REPEAT Code(s): R94.31 - ABNORMAL ELECTROCARDIOGRAM [ECG] [EKG] (5) HTN (hypertension) Assessment/Plan: ON MEDS STABLE Code(s): I10 - ESSENTIAL (PRIMARY) HYPERTENSION Qualifiers: Hypertension type: essential hypertension Qualified Code(s): I10 - Essential (primary) hypertension (6) Hypercholesterolemia Assessment/Plan: ON MEDS STABLE Code(s): E78.00 - PURE HYPERCHOLESTEROLEMIA, UNSPECIFIED
[2016-11-19 18:48] LABS: CPK 117 IU/L (26-192)
[2016-11-19 18:49] LABS: TROPONIN I < 0.02 ng/ml (0.00-0.05)
[2016-11-19] MEDS ORDERED: ZOLPIDEM TARTRATE 5 MG TABLET PO PRN (20:19)
[2016-11-19] MEDS ORDERED: ATORVASTATIN CA 10 MG TABLET (FP) PO SCH (22:00)
[2016-11-19] MEDS ORDERED: VANCOMYCIN 1 GRAM (PRE-DOCKED) 1,000 MG/250 ML BAG IVPB ONE (23:45)
[2016-11-20] MEDS ORDERED: VANCOMYCIN 1 GRAM (PRE-DOCKED) 1,000 MG/250 ML BAG IVPB ONE (00:30)
[2016-11-20] MEDS: ASPIRIN COATED 81 MG TABLET.EC PO SCH (09:40)
[2016-11-20] MEDS: METOPROLOL TARTRATE 50 MG TABLET (FP) PO SCH (09:40)
[2016-11-20] MEDS: amLODIPine BESYLATE 5 MG TABLET (FP) PO SCH (09:40)
[2016-11-20] MEDS: CEFTRIAXONE 50 ML IVPB SCH (09:41)
--- NOTE | 2016-11-20 10:44 | PN ---
Progress Note, Physician History of Present Illness: No further near or true syncope. - Current Medication List Current Medications: Active Medications Amlodipine Besylate (Norvasc -) 5 mg PO DAILY [facility] Last Admin: 11/20/16 09:40 Dose: 5 mg Aspirin (Ecotrin -) 81 mg PO DAILY [facility] Last Admin: 11/20/16 09:40 Dose: 81 mg Atorvastatin Calcium (Lipitor -) 10 mg PO HS [facility] Last Admin: 11/19/16 21:22 Dose: 10 mg Ceftriaxone Sodium (Rocephin 1gm Ivpb (Pre-Docked)) 50 mls @ 100 mls/hr IVPB DAILY [facility] Last Admin: 11/20/16 09:41 Dose: 100 mls/hr Metoprolol Tartrate (Lopressor -) 100 mg PO DAILY [facility] Last Admin: 11/20/16 09:40 Dose: 100 mg Zolpidem Tartrate (Ambien -) 5 mg PO HS PRN PRN Reason: INSOMNIA Last Admin: 11/19/16 21:28 Dose: 5 mg - Objective Vital Signs: Vital Signs Temperature 98.3 F 11/20/16 00:47 Pulse Rate 92 H 11/20/16 00:47 Respiratory Rate 18 11/20/16 00:47 Blood Pressure 161/81 11/20/16 00:47 O2 Sat by Pulse Oximetry (%) 96 11/19/16 21:00 Constitutional: Yes: No Distress, Calm HENT: Yes: Atraumatic Neck: Yes: Supple Cardiovascular: Yes: Regular Rate and Rhythm Respiratory: Yes: Regular, CTA Bilaterally, On Nasal O2 Gastrointestinal: Yes: Normal Bowel Sounds, Soft, Abdomen, Obese Edema: No Labs: CBC, BMP 11/19/16 05:35 11/19/16 05:35 - ....Imaging EKG: Report Reviewed (Tele: ST) Problem List - Problems (1) Abnormal ECG Code(s): R94.31 - ABNORMAL ELECTROCARDIOGRAM [ECG] [EKG] (2) HTN (hypertension) Code(s): I10 - ESSENTIAL (PRIMARY) HYPERTENSION Qualifiers: Hypertension type: essential hypertension Qualified Code(s): I10 - Essential (primary) hypertension (3) Hypercholesterolemia Code(s): E78.00 - PURE HYPERCHOLESTEROLEMIA, UNSPECIFIED (4) Vasovagal near syncope Code(s): R55 - SYNCOPE AND COLLAPSE Assessment/Plan 1. Status post fall without LOC - vasovagal near syncope with typical prodromal sxs 2. Abnormal ECG - rule out CAD 3. Hypertension 4. Hypercholesterolemia 5. Post lactic acidosis PLAN: 1. Continue ASA 81 qd, Metoprolol 100 qd, resume Losartan 100 qd and Amlodipine 5 qd as tolerated 2. Continue Atorvastatin 10 qhs and follow lipid panel 3. F/u Transthoracic echocardiography to assess LV/RV and valvular function 4. Further cardiac work up including nuclear stress testing can be done as outpatient, ruled out for [place], d/c telemetry
[2016-11-20] MEDS ORDERED: LOSARTAN POTASSIUM 50 MG TABLET (FP) PO SCH (12:00)
--- NOTE | 2016-11-20 13:15 | PN ---
Progress Note, Physician - Current Medication List Current Medications: Active Medications Amlodipine Besylate (Norvasc -) 5 mg PO DAILY [facility] Last Admin: 11/20/16 09:40 Dose: 5 mg Aspirin (Ecotrin -) 81 mg PO DAILY [facility] Last Admin: 11/20/16 09:40 Dose: 81 mg Atorvastatin Calcium (Lipitor -) 10 mg PO HS [facility] Last Admin: 11/19/16 21:22 Dose: 10 mg Ceftriaxone Sodium (Rocephin 1gm Ivpb (Pre-Docked)) 50 mls @ 100 mls/hr IVPB DAILY [facility] Last Admin: 11/20/16 09:41 Dose: 100 mls/hr Losartan Potassium (Cozaar -) 100 mg PO DAILY [facility] Last Admin: 11/20/16 13:07 Dose: 100 mg Metoprolol Tartrate (Lopressor -) 100 mg PO DAILY [facility] Last Admin: 11/20/16 09:40 Dose: 100 mg Zolpidem Tartrate (Ambien -) 5 mg PO HS PRN PRN Reason: INSOMNIA Last Admin: 11/19/16 21:28 Dose: 5 mg - Objective Vital Signs: Vital Signs Temperature 97.8 F 11/20/16 10:00 Pulse Rate 101 H 11/20/16 10:00 Respiratory Rate 22 11/20/16 10:00 Blood Pressure 138/86 11/20/16 10:00 O2 Sat by Pulse Oximetry (%) 96 11/19/16 21:00 Labs: CBC, BMP 11/19/16 05:35 11/19/16 05:35 Problem List - Problems (1) SIRS (systemic inflammatory response syndrome) Code(s): R65.10 - SIRS OF NON-INFECTIOUS ORIGIN W/O ACUTE ORGAN DYSFUNCTION (2) Syncope Code(s): R55 - SYNCOPE AND COLLAPSE Qualifiers: Syncope type: unspecified Qualified Code(s): R55 - Syncope and collapse (3) UTI (urinary tract infection) Code(s): N39.0 - URINARY TRACT INFECTION, SITE NOT SPECIFIED Qualifiers: Urinary tract infection type: site unspecified Hematuria presence: without hematuria Qualified Code(s): N39.0 - Urinary tract infection, site not specified; R31.9 - Hematuria, unspecified (4) Abnormal ECG Code(s): R94.31 - ABNORMAL ELECTROCARDIOGRAM [ECG] [EKG] (5) HTN (hypertension) Code(s): I10 - ESSENTIAL (PRIMARY) HYPERTENSION Qualifiers: Hypertension type: essential hypertension Qualified Code(s): I10 - Essential (primary) hypertension (6) Hypercholesterolemia Code(s): E78.00 - PURE HYPERCHOLESTEROLEMIA, UNSPECIFIED
[2016-11-20 15:13] VITALS: BP 145/102; PULSE 85; TEMP 98.4
--- NOTE | 2016-11-20 16:52 | PN ---
Progress Note, Physician History of Present Illness: patient has a bacteremia patient has been told that patient wants to sign out against medical advice i chantalve explained in detail to the patient and her family what can happen and that she can become septic when this discussion was occurring the nursing staff was in the room i have also mentioned that we dont have the identification of the bacteria and it will take tome for the microbiology report to come back patient does not want to wait at all she has been told that she has to sign out AMA and there is risk to her health patient still is going to sign out against medical advice this discussion has occurred in detail and in front of the nursing staff - Current Medication List Current Medications: Active Medications Amlodipine Besylate (Norvasc -) 5 mg PO DAILY [facility] Last Admin: 11/20/16 09:40 Dose: 5 mg Aspirin (Ecotrin -) 81 mg PO DAILY [facility] Last Admin: 11/20/16 09:40 Dose: 81 mg Atorvastatin Calcium (Lipitor -) 10 mg PO HS [facility] Last Admin: 11/19/16 21:22 Dose: 10 mg Ceftriaxone Sodium (Rocephin 1gm Ivpb (Pre-Docked)) 50 mls @ 100 mls/hr IVPB DAILY [facility] Last Admin: 11/20/16 09:41 Dose: 100 mls/hr Losartan Potassium (Cozaar -) 100 mg PO DAILY [facility] Last Admin: 11/20/16 13:07 Dose: 100 mg Metoprolol Tartrate (Lopressor -) 100 mg PO DAILY [facility] Last Admin: 11/20/16 09:40 Dose: 100 mg Zolpidem Tartrate (Ambien -) 5 mg PO HS PRN PRN Reason: INSOMNIA Last Admin: 11/19/16 21:28 Dose: 5 mg - Objective Vital Signs: Vital Signs Temperature 98.4 F 11/20/16 14:00 Pulse Rate 85 11/20/16 14:00 Respiratory Rate 22 11/20/16 10:00 Blood Pressure 145/102 11/20/16 14:00 O2 Sat by Pulse Oximetry (%) 97 11/20/16 09:00 Labs: CBC, BMP 11/19/16 05:35 11/19/16 05:35
--- NOTE | 2016-11-21 17:22 | DS ---
Physical Examination Vital Signs: Vital Signs Temperature 98.4 F 11/20/16 14:00 Pulse Rate 85 11/20/16 14:00 Respiratory Rate 22 11/20/16 10:00 Blood Pressure 145/102 11/20/16 14:00 O2 Sat by Pulse Oximetry (%) 97 11/20/16 09:00 Labs: CBC, BMP 11/19/16 05:35 11/19/16 05:35 Discharge Summary Reason For Visit: URINARY TRACT INFECTION/SYNCOPE Condition: Stable - Instructions Referrals: Maria Antonia Burns MD [Primary Care Provider] - Disposition: AGAINST MEDICAL ADVICE - Home Medications Comprehensive Discharge Medication List: Ambulatory Orders Amlodipine Besylate 5 mg PO DAILY 11/18/16 Atorvastatin Ca [Lipitor] 10 mg PO HS 11/18/16 Losartan Potassium 100 mg PO DAILY 11/18/16 Metoprolol Tartrate 100 mg PO DAILY 11/18/16 AMA
== END 2016-11-20 15:30 | disposition left against medical advice (07) | DRG 463 ==
LOC: JER 11:34 → JERBED 21:38 → J4W 11-19 00:45
PROVIDERS: ADMIT Internal Medicine; ATTEND Internal Medicine
DX: N39.0 Urinary tract infection, site not specified (principal); R42 Dizziness and giddiness; E87.2 Acidosis; E86.0 Dehydration; E11.9 Type 2 diabetes mellitus without complications; I10 Essential (primary) hypertension; E78.00 Pure hypercholesterolemia, unspecified; R65.10 Systemic inflammatory response syndrome (SIRS) of non-infectious origin without acute organ dysfunction; R94.31 Abnormal electrocardiogram [ECG] [EKG]; E66.9 Obesity, unspecified; Z68.34 Body mass index [BMI] 34.0-34.9, adult
CPT/HCPCS: 36415; 71010-TC; 71275-TC; 80053; 81003; 81015; 82803; 83605; 83735; 83880; 84443; 84484; 85025; 85379; 87040; 87086; 87186; 93005; 93010; 93306-TC; 99285-25

== ENCOUNTER 2022-02-28 11:53 | Emergency (ER) | payer OTHER ==
[2022-02-28 12:22] VITALS: RESP 18; TEMP 98.4; BMI 36.8
[2022-02-28] MEDS ORDERED: LOSARTAN POTASSIUM 50 MG TABLET PO ONE (13:45)
[2022-02-28] MEDS ORDERED: amLODIPine BESYLATE 5 MG TABLET (FP) PO ONE (13:45)
[2022-02-28] MEDS ORDERED: amLODIPine BESYLATE 5 MG TABLET (FP) ONE (13:57)
[2022-02-28] MEDS ORDERED: LOSARTAN POTASSIUM 50 MG TABLET ONE (13:57)
[2022-02-28 14:11] LABS: BASO % 0.6 % (0-2.0); EOS % 2.6 % (0-4.5); HEMATOCRIT 39.3 % (32.4-45.2); HEMOGLOBIN 13.8 GM/dL (10.7-15.3); LYMPH % 21.6 % (8-40); MCH 30.3 pg (25.7-33.7); MCHC 35.2 g/dl (32.0-36.0); MEAN CELL VOLUME 86.1 fl (80-96); MEAN PLT VOLUME 7.4 fl (7.5-11.1); MONO % 7.2 % (3.8-10.2); PLATELET COUNT 356 10^3/uL (134-434); RBC 4.56 M/mm3 (3.60-5.2); RDW 13.4 % (11.6-15.6); WHITE BLOOD COUNT 9.9 K/mm3 (4.0-10.0)
[2022-02-28 14:31] LABS: ALBUMIN 3.2 g/dl (3.4-5.0); CALCIUM 8.9 mg/dL (8.5-10.1)
[2022-02-28 14:32] LABS: BLOOD UREA NITROGEN 14.4 mg/dL (7-18)
[2022-02-28 14:36] LABS: BILIRUBIN,TOTAL 0.6 mg/dL (0.2-1); TOT PROT 6.8 g/dl (6.4-8.2)
[2022-02-28 14:37] LABS: CREATININE 1.1 mg/dL (0.55-1.3)
[2022-02-28 22:06] VITALS: BP 203/143; PULSE 96
== END 2022-02-28 16:25 | disposition home or self-care (01) ==
LOC: JER 11:53
DX: I10 Essential (primary) hypertension (principal)
CPT/HCPCS: 0241U-QW; 36415; 71045-TC-FY; 80053; 85025; 93005; 93010; 99285-25